=== PATIENT | male | born 1950 | race Caucasian/White ===

== ENCOUNTER 2019-08-08 20:07 | Emergency (ER) | payer MEDICARE, OTHER ==
[~2019-08-08] VITALS: Ht 185.4 cm; Wt 85.0 kg
[2019-08-08 20:21] VITALS: TEMP 98
[2019-08-08] MEDS ORDERED: NORCO 325 MG-51 TAB PO (20:49)
[2019-08-08] MEDS ORDERED: TYLENOL 500MG500 MG PO (20:50)
[2019-08-08 21:16] LABS: COLLECTION METHOD IN
[2019-08-08 21:30] LABS: PH 6 (5-8); SQUAMOUS EPITHELIAL None Seen /hpf; URINE APPEARANCE Clear; URINE BACTERIA Rare /hpf; URINE BILIRUBIN Negative (NEGATIVE); URINE BLOOD 3+ (NEGATIVE); URINE COLOR Yellow; URINE GLUCOSE Negative (NEGATIVE); URINE KETONE Negative (NEGATIVE); URINE LEUKOCYTE ESTERASE Negative (NEGATIVE); URINE NITRATE Negative (NEGATIVE); URINE PROTEIN(semi-quant) Negative (NEGATIVE); URINE RBC >50 /hpf; URINE UROBILINOGEN Negative (NEGATIVE)
[2019-08-08 21:56] VITALS: BP 125/68; PULSE 72
== END 2019-08-08 22:12 | disposition home or self-care (01) ==
LOC: COL.ER 20:07
PROVIDERS: Family Medicine
DX: K59.00 Constipation, unspecified (principal); R33.9 Retention of urine, unspecified

== ENCOUNTER → 2024-04-29 | Outpatient (CLI) | payer MEDICARE ==
[~2024-04-29] MED LIST: NORCO 325 MG-51 TAB PO; TYLENOL 500MG500 MG PO
== END ==
LOC: COL.RAD 15:33
DX: M50.30 Other cervical disc degeneration, unspecified cervical region (principal); M48.02 Spinal stenosis, cervical region; T14.8XXA Other injury of unspecified body region, initial encounter